=== PATIENT | female | born 1990 ===

== ENCOUNTER 2021-11-07 09:25 | Emergency (ER) | payer SELFPAY ==
[~2021-11-07] VITALS: Ht 162.5 cm; Wt 71.6 kg
--- NOTE | 2021-11-07 10:13 | ED Cardiac General ---
History of Present Illness General Chief Complaint: Cardiac/General Problems Stated Complaint: HIGH BP Nursing Triage Note: PT AMB TO [facility] 6 WITH COUSIN WITH COMPLAINT OF NOSE BLEEDS AND HEADACHE. PT WAS SENT BY [facility] FOR FURTHER EVALUATION. Source: patient Exam Limitations: no limitations History of Present Illness Date Seen by Provider: Nov 07, 2021 Time Seen by Provider: 09:50 Initial Comments Patient uses the language line for Faroese interpretation. She reports she went to the clinic today for headache that is throbbing bitemporal been going on for the last couple hours. She says she gets these intermittently her entire lifetime since she was a child. She is also been told since she was a child she has high blood pressure. She does not take any medicines for it. She is never had any work-up for it before or after her immigration. She is not having any fevers chills nausea vomiting diarrhea dysuria discharge or dysmenorrhea. She had her last menstrual period on 03 November 2021. She took 2 tablets of ibuprofen this morning and 2 yesterday afternoon for a headache. She does not have an aura before her headache comes on nor does she experience nausea or vomiting or photophobia with it. No visual disturbances weakness numbness tingling, dropping things or falls. No loss of control of bowel or bladder. Allergies and Home Medications Allergies Coded Allergies: No Known Drug Allergies (Unverified , 11/07/21) Patient Home Medication List Home Medication List Reviewed: Yes Review of Systems Review of Systems Constitutional: No chills, No diaphoresis EENTM: No Blurred Vision, No Double Vision Respiratory: Denies Cough, Denies Shortness of Air Cardiovascular: Denies Chest Pain, Denies Lightheadedness Gastrointestinal: Denies Constipated, Denies Diarrhea, Denies Nausea, Denies Poor Appetite Genitourinary: Denies Burning, Denies Discharge Musculoskeletal: No back pain, No joint pain All Other Systems Reviewed Negative Unless Noted: Yes Past Mgkaren-Rkopqn-Nyqvmz Hx Patient Social History Tobacco Use?: No Use of E-Cig and/or Vaping dev: No Substance use?: No Alcohol Use?: No Pt feels they are or have been: No Immunizations Up To Date Influenza Vaccine Up-to-Date: No; Not Current Physical Exam Vital Signs Vital Signs - First Documented 11/07/21 09:32 Pulse 77 Resp 16 B/P (MAP) 214/129 (157) Pulse Ox 100 O2 Delivery Room Air Capillary Refill : Less Than 3 Seconds Height, Weight, BMI Height: '" Weight: lbs. oz. kg; 27.00 BMI Method: General Appearance: No Apparent Distress HEENT: PERRL/EOMI, TMs Normal (Negative hemotympanum); No Normal ENT Inspection (Nasal mucosa is erythematous, with some excoriations proximal to the naris and recent dried blood clot bilateral.); Pharynx Normal, Moist Mucous Membranes Neck: Full Range of Motion, Normal Inspection Respiratory: Lungs Clear, Normal Breath Sounds, No Accessory Muscle Use, No Respiratory Distress Cardiovascular: Regular Rate, Rhythm, No Edema, Normal Peripheral Pulses Gastrointestinal: Normal Bowel Sounds, Non Tender, Soft Rectal: Normal Exam Neurologic/Psychiatric: Alert, Oriented x3, No Motor/Sensory Deficits, Normal Mood/Affect Skin: Normal Color, Warm/Dry Progress/Results/Core Measures Results/Orders Lab Results Laboratory Tests Test 11/07/21 09:58 11/07/21 11:08 Range/Units White Blood Count 8.6 4.3-11.0 10^3/uL Red Blood Count 4.82 3.80-5.11 10^6/uL Hemoglobin 13.5 11.5-16.0 g/dL Hematocrit 41 35-52 % Mean Corpuscular Volume 85 80-99 fL Mean Corpuscular Hemoglobin 28 25-34 pg Mean Corpuscular Hemoglobin Concent 33 32-36 g/dL Red Cell Distribution Width 13.4 10.0-14.5 % Platelet Count 396 130-400 10^3/uL Mean Platelet Volume 9.6 9.0-12.2 fL Immature Granulocyte % (Auto) 0 % Neutrophils (%) (Auto) 63 42-75 % Lymphocytes (%) (Auto) 29 12-44 % Monocytes (%) (Auto) 6 0-12 % Eosinophils (%) (Auto) 1 0-10 % Basophils (%) (Auto) 1 0-10 % Neutrophils # (Auto) 5.4 1.8-7.8 10^3/uL Lymphocytes # (Auto) 2.5 1.0-4.0 10^3/uL Monocytes # (Auto) 0.5 0.0-1.0 10^3/uL Eosinophils # (Auto) 0.1 0.0-0.3 10^3/uL Basophils # (Auto) 0.1 0.0-0.1 10^3/uL Immature Granulocyte # (Auto) 0.0 0.0-0.1 10^3/uL Sodium Level 138 135-145 MMOL/L Potassium Level 3.8 3.6-5.0 MMOL/L Chloride Level 105 98-107 MMOL/L Carbon Dioxide Level 23 21-32 MMOL/L Anion Gap 10 5-14 MMOL/L Blood Urea Nitrogen 9 7-18 MG/DL Creatinine 0.67 0.60-1.30 MG/DL Estimat Glomerular Filtration Rate 120 BUN/Creatinine Ratio 13 Glucose Level 99 70-105 MG/DL Calcium Level 9.5 8.5-10.1 MG/DL Corrected Calcium 9.3 8.5-10.1 MG/DL Total Bilirubin 0.4 0.1-1.0 MG/DL Aspartate Amino Transf (AST/SGOT) 19 5-34 U/L Alanine Aminotransferase (ALT/SGPT) 21 0-55 U/L Alkaline Phosphatase 88 40-136 U/L Troponin I < 0.028 <0.028 NG/ML C-Reactive Protein High Sensitivity 0.71 H 0.00-0.50 MG/DL Total Protein 8.2 6.4-8.2 GM/DL Albumin 4.2 3.2-4.5 GM/DL Urine Color YELLOW Urine Clarity SL CLOUDY Urine pH 7.5 5-9 Urine Specific [place] 1.015 L 1.016-1.022 Urine Protein NEGATIVE NEGATIVE Urine Glucose (UA) NEGATIVE NEGATIVE Urine Ketones NEGATIVE NEGATIVE Urine Nitrite NEGATIVE NEGATIVE Urine Bilirubin NEGATIVE NEGATIVE Urine Urobilinogen 0.2 < = 1.0 MG/DL Urine Leukocyte Esterase NEGATIVE NEGATIVE Urine RBC (Auto) NEGATIVE NEGATIVE Urine RBC NONE /HPF Urine WBC NONE /HPF Urine Squamous Epithelial Cells 5-10 /HPF Urine Crystals NONE /LPF Urine Bacteria TRACE /HPF Urine Casts NONE /LPF Urine Mucus NEGATIVE /LPF Urine Culture Indicated NO My Orders Orders - MARY JANE FREEDMAN Ct Head Wo (11/07/21 10:04) Cbc With Automated Diff (11/07/21 10:04) Comprehensive Metabolic Panel (11/07/21 10:04) Hs C Reactive Protein (11/07/21 10:04) Ua Culture If Indicated (11/07/21 10:04) Urine Bedside (11/07/21 10:04) Chest 1 View, Ap/Pa Only (11/07/21 10:06) Ketorolac Injection (Toradol Injection) (11/07/21 10:15) Amlodipine Tablet (Norvasc Tablet) (11/07/21 10:15) Hydralazine Injection (Apresoline Inject (11/07/21 10:15) Troponin I Pedro (11/07/21 10:07) Medications Given in ED Current Medications Medications Dose Ordered Sig/Caleb Route Start Time Stop Time Status Last Admin Dose Admin Amlodipine Besylate 5 mg ONCE ONCE PO 11/07/21 10:15 11/07/21 10:16 DC 11/07/21 10:16 5 MG Hydralazine HCl 10 mg ONCE ONCE IV 11/07/21 10:15 11/07/21 10:16 DC 11/07/21 10:17 10 MG Ketorolac Tromethamine 30 mg ONCE ONCE IVP 11/07/21 10:15 11/07/21 10:16 DC 11/07/21 10:17 30 MG Vital Signs/I&O 11/07/21 09:32 Pulse 77 Resp 16 B/P (MAP) 214/129 (157) Pulse Ox 100 O2 Delivery Room Air Blood Pressure Mean: 157 Progress Progress Note : Time: 10:12 Progress Note Signs of the patient's nosebleeds, headache and hypertension are all chronic. Just the same she is not having any significant neurologic deficit but she is never had a work-up either. Plan to give her a thorough shake with a CT to look for any kind of tumor, hydrocephalus etc. as well as EKG troponin labs and try and bring her blood pressure down about 20%. We will give her some Toradol to help with her headache. We have encouraged her to use nasal saline, keep her finger out of her nose, oxymetazoline as necessary for nosebleeds. If her labs are okay then we will have her follow-up with primary care for continued management. Amlodipine 5 mg and hydralazine 10 mg IV Initial ECG Impression Date: Nov 07, 2021 Initial ECG Impression Time: 10:15 Initial ECG Rate: 74 Initial ECG Rhythm: Normal Sinus Initial ECG Intervals: QT (472) Initial ECG Impression: Normal, Nonspecific Changes Initial ECG Comparisson: No Previous ECG Available Comment Normal sinus rhythm without clinically relevant ST elevation or depression Diagnostic Imaging Diagonstic Imaging: CT Plain Films/CT/US/NM/MRI: head Comments [facility] [place] [place] NAME: VIRGIE BOSS [facility] REC#: [id number] PT STATUS: REG ER : 1990 PHYSICIAN: MARY JANE FREEDMAN MD ADMIT DATE: 11/07/21/ER Draft Date of Exam:11/07/21 CT HEAD WO PROCEDURE: CT head without contrast. TECHNIQUE: Multiple contiguous axial images were obtained through the brain without the use of intravenous contrast. Auto Exposure Controls were utilized during the CT exam to meet ALARA standards for radiation dose reduction. INDICATION: Headache and nosebleeds. COMPARISON: No prior studies are available for comparison. FINDINGS: Ventricular size and sulcal pattern are normal. There are areas of low attenuation in the periventricular white matter. There is no midline shift. No acute intra-axial or extra-axial hemorrhage is detected. Cisterns are patent. Visualized paranasal sinuses are clear. IMPRESSION: 1. No acute intracranial process detected. 2. There are some areas of periventricular low density, atypical for a patient of this age. A demyelinating process cannot be entirely excluded and MRI of the brain on a nonemergent basis would be recommended for further evaluation. Dictated on workstation # [id number] Dict: 11/07/21 1203 Trans: 11/07/21 1207 AS6 [id number] Interpreted by: VASQUEZ WELLS MD Electronically signed by: Reviewed: Reviewed by Me Diagonstic Imaging: Xray Plain Films/CT/US/NM/MRI: chest Comments [facility] [place] [place] NAME: VIRGIE BOSS [facility] REC#: [id number] PT STATUS: REG ER : 1990 PHYSICIAN: MARY JANE FREEDMAN MD ADMIT DATE: 11/07/21/ER Signed Date of Exam:11/07/21 CHEST 1 VIEW, AP/PA ONLY EXAMINATION: Chest 1 view HISTORY: HTN STALLINGS COMPARISON: None available. FINDINGS: Heart size and pulmonary vasculature are normal. The lungs are clear without consolidation, pleural effusion, or pneumothorax. The osseous structures are intact. IMPRESSION: 1. No acute radiographic abnormality in the chest. Dictated by: Dictated on workstation # [id number] Dict: 11/07/21 1113 Trans: 11/07/21 1120 AS6 [id number] Interpreted by: EDER CROSS DO Electronically signed by: EDER CROSS DO 11/07/21 1120 Reviewed: Reviewed by Me Departure Impression Primary Impression: HTN (hypertension) Qualified Codes: I10 - Essential (primary) hypertension Additional Impression: Headache Qualified Codes: R51.9 - Headache, unspecified Disposition: HOME, SELF-CARE Condition: Stable Departure-Patient Inst. Decision time for Depature: 13:33 Referrals: [facility] [place] (PCP/Family) Primary Care Physician Patient Instructions: Headache, Adult (DC), Medicines for High Blood Pressure Add. Discharge Instructions: Start taking amlodipine 5 mg daily. If your blood pressure goes above 200 on the top number or 110 on the bottom number then take a second dose of amlodipine that day. Call your primary care doctor and work to get in as soon as possible for continued management of your blood pressure. There were some difficult to explain characteristics on the CT of your brain that will need an MRI to further work-up in the next couple weeks. yarding supervisor a bottle of nasal saline and do 1 puff in each nostril as often as necessary to try and prevent nosebleeds. If you have a nosebleed then meat pickler a bottle of oxymetazoline and do 2 to 4 puffs each nostril that is bleeding every 4 hours and hold pressure for 40 minutes without checking. Do not put anything in your nose. Just clamp your nose down and sit upright, spitting out any bloody secretions. All discharge instructions reviewed with patient and/or family. Voiced u nderstanding. Scripts Amlodipine Besylate (Amlodipine Besylate) 5 Mg Tablet 5 MG PO DAILY PRN PRN for HTN, #30 TAB 0 Refills Prov: MARY JANE FREEDMAN 11/07/21 Work/School Note: Work Release Form Date Seen in the Emergency Department: Nov 07, 2021 Return to Work: Nov 08, 2021 Restrictions: No Restrictions Copy Copies To 1: ROSANNE ORTIZ TITUS J Nov 07, 2021 10:13
[2021-11-07] MEDS ORDERED: KETOROLAC 30 MG/ML VIAL IVP ONE (10:15)
[2021-11-07] MEDS ORDERED: hydrALAZINE (APESOLINE) 20 MG/ML VIAL IV ONE (10:15)
[2021-11-07] MEDS ORDERED: amLODIPine 5 MG (NORVASC) TAB PO ONE (10:15)
[2021-11-07 10:21] LABS: BASOPHILS # (AUTO) 0.1 10^3/uL (0.0-0.1); BASOPHILS % (AUTO) 1 % (0-10); EOSINOPHILS # (AUTO) 0.1 10^3/uL (0.0-0.3); EOSINOPHILS % (AUTO) 1 % (0-10); HEMATOCRIT 41 % (35-52); HEMOGLOBIN 13.5 g/dL (11.5-16.0); LYMPHOCYTES # (AUTO) 2.5 10^3/uL (1.0-4.0); LYMPHOCYTES % (AUTO) 29 % (12-44); MEAN CORPUSCULAR HEMOGLOBIN 28 pg (25-34); MEAN CORPUSCULAR HGB CONC 33 g/dL (32-36); MEAN CORPUSCULAR VOLUME 85 fL (80-99); MEAN PLATELET VOLUME 9.6 fL (9.0-12.2); MONOCYTES # (AUTO) 0.5 10^3/uL (0.0-1.0); MONOCYTES % (AUTO) 6 % (0-12); NEUTROPHILS # (AUTO) 5.4 10^3/uL (1.8-7.8); NEUTROPHILS % (AUTO) 63 % (42-75); PLATELET COUNT 396 10^3/uL (130-400); WHITE BLOOD COUNT 8.6 10^3/uL (4.3-11.0)
[2021-11-07 10:25] LABS: ALBUMIN 4.2 GM/DL (3.2-4.5); CHLORIDE 105 MMOL/L (98-107); POTASSIUM 3.8 MMOL/L (3.6-5.0); SODIUM 138 MMOL/L (135-145)
[2021-11-07 10:26] LABS: CALCIUM 9.5 MG/DL (8.5-10.1)
[2021-11-07 10:27] LABS: GLUCOSE 99 MG/DL (70-105); TOTAL PROTEIN 8.2 GM/DL (6.4-8.2)
[2021-11-07 10:28] LABS: CARBON DIOXIDE 23 MMOL/L (21-32)
[2021-11-07 10:29] LABS: BILIRUBIN,TOTAL 0.4 MG/DL (0.1-1.0)
[2021-11-07 10:31] LABS: ALKALINE PHOSPHATASE 88 U/L (40-136); CREATININE SERUM 0.67 MG/DL (0.60-1.30); GFR ESTIMATED 120
[2021-11-07 10:32] LABS: BUN/CREATININE RATIO 13
[2021-11-07 10:34] LABS: ALANINE AMINOTRANSFERASE 21 U/L (0-55)
[2021-11-07 11:14] LABS: BILIRUBIN,URINE NEGATIVE (NEGATIVE); CLARITY,URINE SL CLOUDY; COLOR,URINE YELLOW; GLUCOSE, URINE (UA) NEGATIVE (NEGATIVE); KETONES,URINE NEGATIVE (NEGATIVE); LEUKOCYTE ESTERASE ,URINE NEGATIVE (NEGATIVE); NITRITE,URINE NEGATIVE (NEGATIVE); PH,URINE 7.5 (5-9); PROTEIN,URINE NEGATIVE (NEGATIVE)
--- NOTE | 2021-11-07 11:15 | Diagnostic Imaging Report ---
EXAMINATION: Chest 1 view HISTORY: HTN STALLINGS COMPARISON: None available. FINDINGS: Heart size and pulmonary vasculature are normal. The lungs are clear without consolidation, pleural effusion, or pneumothorax. The osseous structures are intact. IMPRESSION: 1. No acute radiographic abnormality in the chest. Dictated by: Dictated on workstation # [id number]
[2021-11-07 11:25] LABS: BACTERIA,URINE TRACE /HPF
--- NOTE | 2021-11-07 12:08 | Diagnostic Imaging Report ---
PROCEDURE: CT head without contrast. TECHNIQUE: Multiple contiguous axial images were obtained through the brain without the use of intravenous contrast. Auto Exposure Controls were utilized during the CT exam to meet ALARA standards for radiation dose reduction. INDICATION: Headache and nosebleeds. COMPARISON: No prior studies are available for comparison. FINDINGS: Ventricular size and sulcal pattern are normal. There are areas of low attenuation in the periventricular white matter. There is no midline shift. No acute intra-axial or extra-axial hemorrhage is detected. Cisterns are patent. Visualized paranasal sinuses are clear. IMPRESSION: 1. No acute intracranial process detected. 2. There are some areas of periventricular low density, atypical for a patient of this age. A demyelinating process cannot be entirely excluded and MRI of the brain on a nonemergent basis would be recommended for further evaluation. Dictated by: Dictated on workstation # [id number]
[2021-11-07] MEDS ORDERED: AMLO-250 PO (13:45)
[2021-11-07 13:54] VITALS: BP 176/125
== END 2021-11-07 14:02 | disposition home or self-care (01) ==
LOC: ER 09:29
DX: I10 Essential (primary) hypertension (principal)
CPT/HCPCS: 36415; 70450; 71045; 80053; 81000; 84484; 84703; 85025; 86141